=== PATIENT | female | born 2000 | race Caucasian/White ===

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

== ENCOUNTER 2024-04-26 22:16 | Emergency (ER) | payer MEDICAID | END 2024-04-27 00:30 | disposition left against medical advice (07) | LOC: MW.ED 22:16 | DX: Z53.21 Procedure and treatment not carried out due to patient leaving prior to being seen by health care provider (principal) | CPT/HCPCS: 87428-QW; 87651-QW ==

== ENCOUNTER 2024-04-27 05:27 | Emergency (ER) | payer MEDICAID ==
[2024-04-27] MEDS: Sodium Chloride 0.9% 1,000 ML IV ONE (05:52)
[2024-04-27] MEDS: Dexamethasone 4 MG Tab PO ONE (06:05)
[2024-04-27] MEDS: LORazepam 2 MG/ML SDV IVPUSH ONE (06:06)
[2024-04-27] MEDS: Ketorolac 30 MG/ML SDV IVPUSH ONE (06:06)
== END 2024-04-27 06:33 | disposition home or self-care (01) ==
LOC: MW.ED 05:27
DX: J06.9 Acute upper respiratory infection, unspecified (principal); B34.9 Viral infection, unspecified; J05.0 Acute obstructive laryngitis [croup]; E86.0 Dehydration; Z79.899 Other long term (current) drug therapy
CPT/HCPCS: 96361; 96374; 96375; 99285; J1885; J2060; J7030; J8540

== ENCOUNTER 2024-06-05 18:24 | Emergency (ER) | payer MEDICAID | END 2024-06-05 18:31 | disposition left against medical advice (07) | LOC: MW.ED 18:24 | DX: Z53.21 Procedure and treatment not carried out due to patient leaving prior to being seen by health care provider (principal) ==

== ENCOUNTER 2024-06-06 05:31 | Emergency (ER) | payer MEDICAID ==
[2024-06-06] MEDS ORDERED: Sodium Chloride 0.9% 2.5 ML Syringe FLUSH PRN (05:49)
[2024-06-06] MEDS ORDERED: Sodium Chloride 0.9% 10 ML Syringe FLUSH PRN (05:49)
[2024-06-06 05:56] LABS: BASOPHILS ABSOLUTE AUTO 0.08 K/uL (0.00-0.20); BASOPHILS PERCENT AUTO 0.7 % (0.0-1.0); EOSINOPHILS PERCENT AUTO 0.9 % (0.0-6.0); HEMATOCRIT 37.4 % (37.0-47.0); HEMOGLOBIN 13.1 g/dL (12.0-16.0); IMMATURE GRAN ABSOLUTE AUTO 0.04 K/uL (0.00-0.05); IMMATURE GRAN PERCENT AUTO 0.4 % (0.0-0.4); LYMPHOCYTES ABSOLUTE AUTO 3.27 K/uL (1.00-4.80); MEAN CORPUSCULAR HEMOGLOBIN 31.4 pg (28.0-32.0); MEAN CORPUSCULAR VOLUME 89.7 fL (83.0-99.0); MEAN PLATELET VOLUME 9.7 fL (9.4-12.3); MONOCYTES PERCENT AUTO 11.5 % (0.0-8.0); NEUTROPHILS ABSOLUTE AUTO 6.47 K/uL (1.80-7.70); NEUTROPHILS PERCENT AUTO 57.5 % (41.0-71.0); PLATELET COUNT,PLT 130 K/uL (150-400); RED BLOOD CELL COUNT 4.17 M/uL (4.10-5.30); WHITE BLOOD CELL COUNT,WBC 11.26 K/uL (3.9-11.3)
[2024-06-06] MEDS: cefTRIAXone 1 GM Vial IV ONE (06:01)
[2024-06-06 06:04] LABS: INR 1.03 (0.86-1.11); PTT,PARTIAL THROMBOPLSTIN TIME 21.7 SEC (23.9-30.7)
[2024-06-06] MEDS: cefTRIAXone 1 GM in Sodium Chloride 0.9% 50 ML IV ONE (06:06)
[2024-06-06 06:14] LABS: A/G RATIO 1.2 (0.9-1.6); ACETAMINOPHEN <2.0 ug/mL; ALANINE AMINOTRANSFERASE,ALT 14 IU/L (14-63); ALBUMIN 3.8 g/dL (3.4-5.0); ALKALINE PHOSPHATASE 90 U/L (46-116); ASPARTATE AMNIOTRANSFERASE,AST 18 IU/L (15-37); BILIRUBIN TOTAL 0.5 mg/dL (0.2-1.0); BLOOD UREA NITROGEN,BUN 12 mg/dL (7.0-18.0); CALCIUM 8.8 mg/dL (8.5-10.1); CARBON DIOXIDE,CO2 22.3 mmol/L (21.0-32.0); CHLORIDE,CL 101 mmol/L (98-107); CREATININE 0.8 mg/dL (0.6-1.0); ETHANOL BLOOD MEDICAL 5 mg/dL; GLUCOSE RANDOM 99 mg/dL (74-106); MAGNESIUM 1.9 mg/dL (1.8-2.4); PROTEIN TOTAL,TP 7.1 g/dL (6.4-8.2); SODIUM,NA 138 mmol/L (136-145)
[2024-06-06 06:19] LABS: ESTIMATED GFR 107 mL/min (>60)
[2024-06-06 06:43] LABS: LACTIC ACID 0.9 mmol/L (0.4-2.0)
[2024-06-06] MEDS: Sodium Chloride 0.9% 1,000 ML IV ONE (07:35)
== END 2024-06-06 09:27 | disposition home or self-care (01) ==
LOC: MW.ED 05:31
DX: G40.909 Epilepsy, unspecified, not intractable, without status epilepticus (principal); F41.9 Anxiety disorder, unspecified; F43.10 Post-traumatic stress disorder, unspecified; F10.90 Alcohol use, unspecified, uncomplicated; Z91.148 Patient's other noncompliance with medication regimen for other reason; Z59.00 Homelessness unspecified; Z79.899 Other long term (current) drug therapy
CPT/HCPCS: 36415; 71045; 80053; 80143; 80179; 80307; 82947; 83605; 83735; 84484; 84703; 85025; 85610; 85730; 87040; 87428; 93005; 96361; 96365; 96375; 99285; J0696; J1953; J3490; J7030; 93010; 99284

== ENCOUNTER 2024-07-14 09:17 | Emergency (ER) | payer MEDICAID ==
[2024-07-14] MEDS: levETIRAcetam Soln 500 MG/5 ML Cup PO ONE ×2 (09:49→09:53)
[2024-07-14] MEDS: levETIRAcetam 500 MG Tab ONE (09:54)
[2024-07-14] MEDS: levETIRAcetam 500 MG Tab PO ONE ×2 (09:56→10:03)
== END 2024-07-14 10:05 | disposition home or self-care (01) ==
LOC: MW.ED 09:17
DX: Z76.0 Encounter for issue of repeat prescription (principal); Z86.69 Personal history of other diseases of the nervous system and sense organs; Z79.899 Other long term (current) drug therapy
CPT/HCPCS: 99281; A9270; 99282